=== PATIENT | female | born 1940 | race Caucasian/White ===

== ENCOUNTER → 2016-04-20 | Outpatient (CLI) | payer OTHER ==
[~2016-04-20] MED LIST: ASPI81TA28 PO; ATEN-171 PO; BROM0.07 OPL; CALC600T37 PO; CHOL2000 PO; COEN100C11 PO; CZR25 PO; DIFL0.0519 OPL; GATI0.5S OPL; GLC/500 PO; LEVO50TA6 PO; MULT-506 PO; SIMV20TA2 PO; VITACAP26 PO
[2016-04-20 09:49] LABS: ALT/SGPT 22 U/L (12-78); BLOOD UREA NITROGEN 24 mg/dl (7-18); BUN/CREATININE RATIO 26.6 (10-20); CALCIUM 9.1 mg/dl (8.5-10.1); CARBON DIOXIDE 28 mmol/L (21-32); CHLORIDE 106 mmol/L (98-107); CHOLESTEROL 155 mg/dl (0-200); GLUCOSE 114 mg/dl (70-99); POTASSIUM 3.7 mmol/L (3.5-5.1); SODIUM 142 mmol/L (136-145); TRIGLYCERIDES 161 mg/dl (0-150); VERY LOW DENSITY LIPOPROT CALC 32 mg/dl
[2016-04-20 09:58] LABS: ESTIMATED AVERAGE GLUCOSE 123 mg/dl; HA1C FLAG Normal (Normal)
[2016-04-20 09:59] LABS: ALB/GLOB RATIO 1.2 (0.9-2); ALKALINE PHOSPHATASE 47 U/L (45-117); AST/SGOT 22 U/L (15-37); CHOLESTEROL/HDL RATIO 2.9; HDL CHOLESTEROL 53 mg/dl; LDL CHOLESTEROL CALCULATED 70 mg/dl
== END | disposition home or self-care (01) ==
LOC: C.LAB1850 08:05
PROVIDERS: ATTEND Internal Medicine
DX: E87.6 Hypokalemia (principal); E11.9 Type 2 diabetes mellitus without complications

== ENCOUNTER → 2016-10-27 | Outpatient (CLI) | payer OTHER ==
[~2016-10-27] MED LIST changes: -BROM0.07 OPL; -DIFL0.0519 OPL; -GATI0.5S OPL
[2016-10-27 09:37] LABS: BASO % 0.7 %; BASO ABS # 0.04 K/uL (0-0.2); COMPLETE YES; EOS % 3.1 %; HEMATOCRIT 41.5 % (37-47); IG% 0.2 %; LYMPH % 33.8 %; LYMPH ABS # 2.07 K/uL (1.2-3.4); MEAN CELL VOLUME 89.6 fL (80-100); MEAN CORPUSCULAR HEMOGLOBIN 29.8 pg (25-34); MEAN CORPUSCULAR HGB CONC 33.3 g/dl (32-36); MEAN PLATELET VOLUME 11.5 fL (7.4-10.4); MONO % 7.2 %; PLATELET COUNT 203 K/uL (130-400); RED BLOOD COUNT 4.63 M/uL (4.2-5.4); WHITE BLOOD COUNT 6.13 K/uL (4.8-10.8)
[2016-10-27 10:00] LABS: ESTIMATED AVERAGE GLUCOSE 120 mg/dl; HA1C FLAG Normal (Normal)
[2016-10-27 10:42] LABS: RATIO 31.1 mcg/mg (0-30.0)
[2016-10-27 10:47] LABS: ALT/SGPT 25 U/L (12-78); AST/SGOT 19 U/L (15-37); BLOOD UREA NITROGEN 19 mg/dl (7-18); CALCIUM 9.2 mg/dl (8.5-10.1); CARBON DIOXIDE 27 mmol/L (21-32); CHLORIDE 106 mmol/L (98-107); CHOLESTEROL 148 mg/dl (0-200); CREATININE 0.88 mg/dl (0.60-1.20); GLUCOSE 119 mg/dl (70-99); POTASSIUM 3.4 mmol/L (3.5-5.1); SODIUM 142 mmol/L (136-145)
[2016-10-27 10:57] LABS: ALB/GLOB RATIO 1.1 (0.9-2); ALKALINE PHOSPHATASE 46 U/L (45-117); HDL CHOLESTEROL 49 mg/dl; LDL CHOLESTEROL CALCULATED 63 mg/dl; TRIGLYCERIDES 182 mg/dl (0-150); VERY LOW DENSITY LIPOPROT CALC 36 mg/dl
--- NOTE | 2016-11-03 11:49 | CODING QUERY MEDICAL NECESSITY ---
SUPPORTING DIAGNOSIS NEEDED A supporting diagnosis is required for the test/procedure performed on this patient in order for us to be reimbursed by the patient's insurance. Please provide a supporting diagnosis for the following test/procedure listed below next to the test name along with your signature. *If there is no additional diagnosis for this patient that would support the following test/procedure please document that below next to the test/procedure. Test(s)/Procedure(s) that require a supporting diagnosis: * VITAMIN D, 25-HYDROXY DIAGNOSIS: Provider Signature: Date: Thank you Nella Funk [employer] Once completed, please kindly fax back to [phone] For questions please call [phone]
== END | disposition home or self-care (01) ==
LOC: C.LAB1850 07:30
PROVIDERS: ATTEND Internal Medicine
DX: E11.9 Type 2 diabetes mellitus without complications (principal); E03.9 Hypothyroidism, unspecified; I10 Essential (primary) hypertension; E78.5 Hyperlipidemia, unspecified

== ENCOUNTER → 2016-11-22 | Outpatient (CLI) | payer OTHER | END | disposition home or self-care (01) | LOC: C.MAMM 10:53 | PROVIDERS: ATTEND Internal Medicine | DX: Z13.820 Encounter for screening for osteoporosis (principal); M85.832 Other specified disorders of bone density and structure, left forearm ==

== ENCOUNTER → 2017-01-18 | Day surgery (SDC) | payer OTHER ==
[2016-12-22 14:52] VITALS: Ht 158.8 cm; Wt 74.1 kg
[~2017-01-18] VITALS: Ht 158.8 cm; Wt 74.1 kg
[~2017-01-18] MED LIST changes: +500ML BSS 0.3ML EPI 1:1000PF IRRIG ONE; +ACETAMINOPHEN 325 MG TAB PO PRN; +AMVISC PLUS 0.8ML SYRINGE INT OCU ONE; +ATROPINE SULFATE 0.1 MG/ML 5ML SYR IV PRN; +BSS FLUSH ONE; +EpHEDrine SULFATE INJ 50 MG/ML AMP IV PRN; +EpINEphrine INJ 1MG/ML AMP 1 MG/ML AMP ONE; +LACTATED RINGER'S 1000ML 500 ML IV SCH; +LIDOCAINE 3.5% OPH GEL PER APPLICATION CHARGE ONE; +LIDOCAINE HCL 1% MPF 2 ML VIAL ONE; +MIDAZOLAM HCL 1 MG/ML 2ML VIAL ONE; +OCUCOAT 1 ML SOLN IO ONE; +PHENYLEPHRINE HCL 10% OP SOLN PER DROP CHARGE OPR SCH; +POVIDONE-IODINE OP SOLN 30 ML BTL ONE; +PROPARACAINE 0.5% OP SOLN PER DROP CHARGE OPR SCH; +SODIUM CHLORIDE 0.9% 500ML IV SCH; +TOBRAMYCIN/DEXAMETHASONE OPH OINT PER APPLN CHARGE ONE
[2017-01-18] MEDS: PHENYLEPHRINE HCL 2.5% OP SOLN PER DROP CHARGE OPR SCH ×2 (07:06→07:12)
[2017-01-18] MEDS: TROPICAMIDE 1% OP SOLN PER DROP CHARGE OPR SCH ×2 (07:07→07:13)
[2017-01-18] MEDS: CYCLOPENTOLATE HCL 1% OP SOLN PER DROP CHARGE OPR SCH ×2 (07:09→07:14)
[2017-01-18] MEDS: KETOROLAC 0.5% OP SOLN PER DROP CHARGE OPR SCH ×2 (07:10→07:15)
[2017-01-18] MEDS: GATIFLOXACIN OP SOLN PER DROP CHARGE OPR SCH ×2 (07:11→07:16)
--- NOTE | 2017-01-18 07:25 | History & Physical Bridge - [place] ---
H&P Re-Evaluation Bridge Note: I have examined the patient, reviewed the History & Physical and in the interval since the performance of the History & Physical I have noted the following changes of clinical significance: No changes noted
--- NOTE | 2017-01-18 08:08 | Discharge Instructions-SurgCtr ---
Discharge Instructions Date of Service Jan 18, 2017. Visit Reason for Visit: Cataract Right Eye Discharge Discharge Diagnosis / Problem: cataract Discharge Goals Goal(s): Improve function Activity Recommendations Activity Limitations: per Instructions/Follow-up section Anesthesia . Post Anesthesia Instructions: If you have had General Anesthesia or IV Sedation: * Do not drive today. * Resume driving when surgeon permits. * Do not make important decisions or sign legal documents today. * Call surgeon for: 1. Temperature elevations greater than 101 degrees F. 2. Uncontrollable pain. 3. Excessive bleeding. 4. Persistent nausea and vomiting. 5. Medication intolerance (nausea, vomiting or rash). * For nausea and vomiting use only clear liquids such as: tea, soda, bouillon until nausea subsides, then gradually increase diet as tolerated. * If you have any concerns or questions, call your surgeon's office. If physician is unavailable and it is an emergency, call 911 or go to the nearest emergency room. . Diet Recommendations Home Diet: resume previous diet Procedures Procedures Performed: Right Cataract Phacoemulsification With Intraocular Lens Implant Pending Studies Studies pending at discharge: no Medical Emergencies . Who to Call and When: Medical Emergencies: If at any time you feel your situation is an emergency, please call 911 immediately. . Non-Emergent Contact Non-Emergency issues call your: Manager Corporate Responsibility . . "Provider Documentation" section prepared by Andrey Henderson. .
--- NOTE | 2017-01-18 08:09 | [facility] Operative Report ---
Operative Report Date of Service Jan 18, 2017. Operative Report 1. PREOPERATIVE DIAGNOSIS: Cataract of the right eye. 2. POSTOPERATIVE DIAGNOSIS: Same. 3. PROCEDURE: Phacoemulsification with intraocular lens implantation of the right eye. SURGEON: Dr. Andrey Henderson. ANESTHESIA: Topical Lidocaine gel, 1% Non- Preserved intracameral Lidocaine, and monitored intravenous sedation. INDICATIONS FOR THE PROCEDURE: The patient is a 76 - year-old female with a history of cataract of the right eye causing significant visual impairment. The details of the proposed procedure were explained to the patient who asked appropriate questions and following discussion of all risks, benefits and alternatives agreed to have the procedure done. 4. OPERATION AND FINDINGS: DESCRIPTION OF PROCEDURE: After informed consent was obtained, the patient was brought to the Operating Room at the [facility]. The patient was placed in a supine position and then the right eye was prepped and draped in the usual sterile fashion for intraocular surgery. A drop of topical Lidocaine gel was placed in the operative eye. A wire lid speculum was then placed in the fornices. A corneal paracentesis was then created temporally. The Non-Preserved Lidocaine was then instilled into the anterior chamber. The anterior chamber was then pressurized with viscoelastic. A 2.0 mm clear corneal incision was then created temporally. A cystotome was inserted into the anterior chamber and used to create a tear in the anterior lens capsule. This capsular tear was then used to create a small flap and the flap was dragged in a counterclockwise direction in order to create a continuous curvilinear capsulorrhexis. Hydrodissection was accomplished with balanced salt solution. Phacoemulsification of the lens nucleus was then performed in a standard [id number] technique. The phaco time was 30 seconds with an average power of 16 %. The remaining cortical material was removed using irrigation aspiration. The capsular bag was then filled with viscoelastic. A Bausch [employer] Lomb MI60L +22.5 diopters lens was then loaded into the injector and injected into the capsular bag. The remaining viscoelastic was removed with the irrigation aspiration handpiece. The wound was hydrated and then checked and found to be watertight. The intraocular pressure was checked and found to be adequate. The wire lid speculum was removed and the patient's face was cleaned and dried. TobraDex ointment was placed in the inferior fornix. The patient was discharged to the Recovery Room having tolerated the procedure well. There were no complications. The patient will be seen tomorrow in the office for follow-up. I attest to the content of the Intraoperative Record and any orders documented therein. Any exceptions are noted below.
--- NOTE | 2017-01-18 08:15 | Anesthesia Progress Nt - [facility] ---
Anesthesia Post Op Note Date & Time Jan 18, 2017 at 08:14 Vital Signs Pain Intensity: 0 Vital Signs Past 12 Hours Date Time Temp Pulse Resp B/P (MAP) Pulse Ox O2 Delivery O2 Flow Rate FiO2 01/18/17 06:59 36.1 58 16 140/74 (96) 96 Room Air Notes Mental Status: alert / awake / arousable, participated in evaluation Pt Amnestic to Procedure: Yes Nausea / Vomiting: adequately controlled Pain: adequately controlled Airway Patency, RR, SpO2: stable & adequate BP & HR: stable & adequate Hydration State: stable & adequate Anesthetic Complications: no major complications apparent
[2017-01-18 08:49] VITALS: BP 141/74; PULSE 62; TEMP 36.6; O2SAT 99
== END | disposition home or self-care (01) ==
LOC: X.SURG 06:40
PROVIDERS: ATTEND Ophthalmology
DX: H26.9 Unspecified cataract (principal); E11.36 Type 2 diabetes mellitus with diabetic cataract; I10 Essential (primary) hypertension; E78.5 Hyperlipidemia, unspecified; E83.52 Hypercalcemia; E03.9 Hypothyroidism, unspecified; E04.2 Nontoxic multinodular goiter; E66.9 Obesity, unspecified; M85.80 Other specified disorders of bone density and structure, unspecified site; Z79.82 Long term (current) use of aspirin; Z79.899 Other long term (current) drug therapy

== ENCOUNTER → 2017-02-08 | Day surgery (SDC) | payer OTHER ==
[2017-01-25 14:30] VITALS: Ht 158.8 cm; Wt 74.1 kg
[~2017-02-08] VITALS: Ht 158.8 cm; Wt 74.1 kg
[~2017-02-08] MED LIST changes: +BROM0.07 OPL; +DIFL0.0519 OPL; +GATI0.5S OPL; +PHENYLEPHRINE HCL 10% OP SOLN PER DROP CHARGE OPL SCH; -PHENYLEPHRINE HCL 10% OP SOLN PER DROP CHARGE OPR SCH; +PROPARACAINE 0.5% OP SOLN PER DROP CHARGE OPL SCH; -PROPARACAINE 0.5% OP SOLN PER DROP CHARGE OPR SCH; -SODIUM CHLORIDE 0.9% 500ML IV SCH
[2017-02-08] MEDS: PHENYLEPHRINE HCL 2.5% OP SOLN PER DROP CHARGE OPL SCH ×2 (09:10→09:15)
[2017-02-08] MEDS: TROPICAMIDE 1% OP SOLN PER DROP CHARGE OPL SCH ×2 (09:11→09:16)
[2017-02-08] MEDS: CYCLOPENTOLATE HCL 1% OP SOLN PER DROP CHARGE OPL SCH ×2 (09:12→09:17)
[2017-02-08] MEDS: KETOROLAC 0.5% OP SOLN PER DROP CHARGE OPL SCH ×2 (09:13→09:18)
[2017-02-08] MEDS: GATIFLOXACIN OP SOLN PER DROP CHARGE OPL SCH ×2 (09:14→09:24)
--- NOTE | 2017-02-08 10:39 | Discharge Instructions-SurgCtr ---
Discharge Instructions Date of Service Feb 08, 2017. Visit Reason for Visit: Cataract Left Eye Discharge Discharge Diagnosis / Problem: cataract Discharge Goals Goal(s): Improve function Medications Stopped Medications Name(s): metformin-last dose 02/05/17, asa 81mg-last dose 02/01/17 Activity Recommendations Activity Limitations: per Instructions/Follow-up section Anesthesia . Post Anesthesia Instructions: If you have had General Anesthesia or IV Sedation: * Do not drive today. * Resume driving when surgeon permits. * Do not make important decisions or sign legal documents today. * Call surgeon for: 1. Temperature elevations greater than 101 degrees F. 2. Uncontrollable pain. 3. Excessive bleeding. 4. Persistent nausea and vomiting. 5. Medication intolerance (nausea, vomiting or rash). * For nausea and vomiting use only clear liquids such as: tea, soda, bouillon until nausea subsides, then gradually increase diet as tolerated. * If you have any concerns or questions, call your surgeon's office. If physician is unavailable and it is an emergency, call 911 or go to the nearest emergency room. . Diet Recommendations Home Diet: resume previous diet Procedures Procedures Performed: Left Cataract Phacoemulsification With Intraocular Lens Implant Pending Studies Studies pending at discharge: no Medical Emergencies . Who to Call and When: Medical Emergencies: If at any time you feel your situation is an emergency, please call 911 immediately. . Non-Emergent Contact Non-Emergency issues call your: Paving Inspector . . "Provider Documentation" section prepared by Andrey Henderson. .
--- NOTE | 2017-02-08 10:40 | [facility] Operative Report ---
Operative Report Date of Service Feb 08, 2017. Operative Report 1. PREOPERATIVE DIAGNOSIS: Cataract of the left eye. 2. POSTOPERATIVE DIAGNOSIS: Same. 3. PROCEDURE: Phacoemulsification with intraocular lens implantation of the left eye. SURGEON: Dr. Andrey Henderson. ANESTHESIA: Topical Lidocaine gel, 1% Non- Preserved intracameral Lidocaine, and monitored intravenous sedation. INDICATIONS FOR THE PROCEDURE: The patient is a 77 - year-old female with a history of cataract of the left eye causing significant visual impairment. The details of the proposed procedure were explained to the patient who asked appropriate questions and following discussion of all risks, benefits and alternatives agreed to have the procedure done. 4. OPERATION AND FINDINGS: DESCRIPTION OF PROCEDURE: After informed consent was obtained, the patient was brought to the Operating Room at the [facility]. The patient was placed in a supine position and then the left eye was prepped and draped in the usual sterile fashion for intraocular surgery. A drop of topical Lidocaine gel was placed in the operative eye. A wire lid speculum was then placed in the fornices. A corneal paracentesis was then created temporally. The Non-Preserved Lidocaine was then instilled into the anterior chamber. The anterior chamber was then pressurized with viscoelastic. A 2.0 mm clear corneal incision was then created temporally. A cystotome was inserted into the anterior chamber and used to create a tear in the anterior lens capsule. This capsular tear was then used to create a small flap and the flap was dragged in a counterclockwise direction in order to create a continuous curvilinear capsulorrhexis. Hydrodissection was accomplished with balanced salt solution. Phacoemulsification of the lens nucleus was then performed in a standard [id number] technique. The remaining cortical material was removed using irrigation aspiration. The capsular bag was then filled with viscoelastic. A Bausch & Lomb MI60L +22.0 diopters lens was then loaded into the injector and injected into the capsular bag. The remaining viscoelastic was removed with the irrigation aspiration handpiece. The wound was hydrated and then checked and found to be watertight. The intraocular pressure was checked and found to be adequate. The wire lid speculum was removed and the patient's face was cleaned and dried. TobraDex ointment was placed in the inferior fornix. The patient was discharged to the Recovery Room having tolerated the procedure well. There were no complications. The patient will be seen tomorrow in the office for follow-up. I attest to the content of the Intraoperative Record and any orders documented therein. Any exceptions are noted below.
[2017-02-08 10:45] VITALS: TEMP 36.8
[2017-02-08 11:01] VITALS: BP 133/77; PULSE 59; O2SAT 95
--- NOTE | 2017-02-08 11:10 | Anesthesia Progress Nt - [facility] ---
Anesthesia Post Op Note Date & Time Feb 08, 2017 at 11:09 Vital Signs Pain Intensity: 0 Vital Signs Past 12 Hours Date Time Temp Pulse Resp B/P (MAP) Pulse Ox O2 Delivery O2 Flow Rate FiO2 02/08/17 11:01 59 16 133/77 (95) 95 Room Air 02/08/17 10:45 36.8 60 20 119/74 (89) 98 Room Air 02/08/17 08:59 36.6 63 18 144/82 (102) 96 Room Air Notes Mental Status: alert / awake / arousable, participated in evaluation Pt Amnestic to Procedure: Yes Nausea / Vomiting: adequately controlled Pain: adequately controlled Airway Patency, RR, SpO2: stable & adequate BP & HR: stable & adequate Hydration State: stable & adequate Anesthetic Complications: no major complications apparent
== END | disposition home or self-care (01) ==
LOC: X.SURG 08:34
PROVIDERS: ATTEND Ophthalmology
DX: H25.9 Unspecified age-related cataract (principal); E11.36 Type 2 diabetes mellitus with diabetic cataract; I10 Essential (primary) hypertension; E78.5 Hyperlipidemia, unspecified; E83.52 Hypercalcemia; E03.9 Hypothyroidism, unspecified; M85.80 Other specified disorders of bone density and structure, unspecified site; E66.9 Obesity, unspecified; Z87.891 Personal history of nicotine dependence; Z79.82 Long term (current) use of aspirin; Z79.84 Long term (current) use of oral hypoglycemic drugs; Z79.899 Other long term (current) drug therapy

== ENCOUNTER → 2017-04-13 | Outpatient (CLI) | payer OTHER ==
[~2017-04-13] MED LIST changes: -500ML BSS 0.3ML EPI 1:1000PF IRRIG ONE; -ACETAMINOPHEN 325 MG TAB PO PRN; -AMVISC PLUS 0.8ML SYRINGE INT OCU ONE; -ATROPINE SULFATE 0.1 MG/ML 5ML SYR IV PRN; -BSS FLUSH ONE; -EpHEDrine SULFATE INJ 50 MG/ML AMP IV PRN; -EpINEphrine INJ 1MG/ML AMP 1 MG/ML AMP ONE; -LACTATED RINGER'S 1000ML 500 ML IV SCH; -LIDOCAINE 3.5% OPH GEL PER APPLICATION CHARGE ONE; -LIDOCAINE HCL 1% MPF 2 ML VIAL ONE; -MIDAZOLAM HCL 1 MG/ML 2ML VIAL ONE; -OCUCOAT 1 ML SOLN IO ONE; -PHENYLEPHRINE HCL 10% OP SOLN PER DROP CHARGE OPL SCH; -POVIDONE-IODINE OP SOLN 30 ML BTL ONE; -PROPARACAINE 0.5% OP SOLN PER DROP CHARGE OPL SCH; -TOBRAMYCIN/DEXAMETHASONE OPH OINT PER APPLN CHARGE ONE
--- NOTE | 2017-04-14 13:48 | MAMMOGRAPHY REPORT ---
BILATERAL DIGITAL SCREENING MAMMOGRAM TOMOSYNTHESIS WITH CAD: 04/13/2017 CLINICAL HISTORY: Routine screening. Patient has no complaints. TECHNIQUE: Breast tomosynthesis in addition to standard 2D mammography was performed. Current study was also evaluated with a Computer Aided Detection (CAD) system. COMPARISON: Comparison is made to exams dated: 04/12/2016 mammogram, 04/07/2015 mammogram, 4 mammogram, 02/26/2013 mammogram, 02/23/2012 mammogram, and 02/22/2011 mammogram - [facility]. BREAST COMPOSITION: There are scattered areas of fibroglandular density in both breasts. FINDINGS: There is stable nodularity in the anterior left breast. Scattered benign rim calcification s and mild vascular calcification bilaterally. No suspicious mass, architectural distortion or clust er of microcalcifications is seen. IMPRESSION: ACR BI-RADS CATEGORY 1: NEGATIVE There is no mammographic evidence of malignancy. A 1 year screening mammogram is recommended. The pa tient will receive written notification of the results. Approximately 10% of breast cancers are not detected with mammography. A negative mammographic report should not delay biopsy if a clinically suggestive mass is present. Jocelyne Eddy M.D. ay/:04/13/2017 17:09:39 Plastic Technician: Laura Quintero, [facility] letter sent: Normal 1/2 BI-RADS Code: ACR BI-RADS Category 1: Negative
== END | disposition home or self-care (01) ==
LOC: C.MAMM 09:44
PROVIDERS: ATTEND Internal Medicine
DX: Z12.31 Encounter for screening mammogram for malignant neoplasm of breast (principal)

== ENCOUNTER → 2017-04-26 | Outpatient (CLI) | payer OTHER ==
[2017-04-26 12:19] LABS: BASO % 0.5 %; BASO ABS # 0.03 K/uL (0-0.2); EOS % 2.1 %; EOS ABS # 0.14 K/uL (0-0.5); HEMATOCRIT 41.7 % (37-47); HEMOGLOBIN 14.3 g/dL (12.0-16.0); IG# 0.01 K/uL (0.00-0.02); LYMPH % 33.4 %; LYMPH ABS # 2.18 K/uL (1.2-3.4); MEAN CELL VOLUME 90.8 fL (80-100); MEAN CORPUSCULAR HEMOGLOBIN 31.2 pg (25-34); MEAN CORPUSCULAR HGB CONC 34.3 g/dl (32-36); MEAN PLATELET VOLUME 11.2 fL (7.4-10.4); MONO % 6.7 %; MONO ABS # 0.44 K/uL (0.11-0.59); NEUT % 57.1 %; NEUT ABS # 3.72 K/uL (1.4-6.5); PLATELET COUNT 233 K/uL (130-400); RED CELL DISTRIBUTION WIDTH CV 12.9 % (11.5-14.5); RED CELL DISTRIBUTION WIDTH SD 42.8 fL (36.4-46.3); WHITE BLOOD COUNT 6.52 K/uL (4.8-10.8)
[2017-04-26 16:38] LABS: ALBUMIN 3.6 gm/dl (3.4-5.0); ALT/SGPT 22 U/L (12-78); AST/SGOT 21 U/L (15-37); BLOOD UREA NITROGEN 20 mg/dl (7-18); CALCIUM 8.9 mg/dl (8.5-10.1); CARBON DIOXIDE 29 mmol/L (21-32); CHOLESTEROL 149 mg/dl (0-200); CREATININE 0.93 mg/dl (0.60-1.20); GLUCOSE 113 mg/dl (70-99); POTASSIUM 3.5 mmol/L (3.5-5.1); SODIUM 139 mmol/L (136-145)
[2017-04-26 16:48] LABS: ALKALINE PHOSPHATASE 46 U/L (45-117); LDL CHOLESTEROL CALCULATED 68 mg/dl; TOTAL PROTEIN 6.7 gm/dl (6.4-8.2)
== END | disposition home or self-care (01) ==
LOC: C.LAB1850 11:13
PROVIDERS: ATTEND Internal Medicine
DX: E03.9 Hypothyroidism, unspecified (principal); E78.5 Hyperlipidemia, unspecified; E11.9 Type 2 diabetes mellitus without complications; I10 Essential (primary) hypertension

== ENCOUNTER → 2017-05-02 | Outpatient (CLI) | payer OTHER ==
--- NOTE | 2017-05-02 11:13 | DIAGNOSTIC IMAGING REPORT ---
C-SPINE ROUTINE 4 OR 5 VIEWS HISTORY: Pain M43.6 Neck [id number] COMPARISON: None. FINDINGS: The cervical spine is visualized from C1 through the superior endplate of T1. There is no fracture. No subluxation. Considerable degenerative disc changes throughout. Significant sclerosis of the vertebral endplates with mild anterior osteophytic changes throughout the entire cervical region. No evidence for an acute compression deformity. Degenerative changes C1-C2 complex. Prevertebral soft tissues and the atlantodens interval are intact. IMPRESSION: Considerable degenerative change throughout the entire cervical region. No acute process. The above report was generated using voice recognition software. It may contain grammatical, syntax or spelling errors. Electronically signed by: Jose Cleary M.D. 05/02/2017 11:11 AM Dictated Date/Time: 05/02/2017 11:11 AM
== END | disposition home or self-care (01) ==
LOC: C.RAD1850 10:48
PROVIDERS: ATTEND Internal Medicine
DX: M43.6 Torticollis (principal)

== ENCOUNTER → 2017-12-06 | Outpatient (CLI) | payer OTHER ==
[2017-12-06 12:22] LABS: BLOOD UREA NITROGEN 17 mg/dl (7-18); CALCIUM 10.1 mg/dl (8.5-10.1); CARBON DIOXIDE 29 mmol/L (21-32); CREATININE 0.89 mg/dl (0.60-1.20); GLUCOSE 93 mg/dl (70-99); POTASSIUM 4.1 mmol/L (3.5-5.1); SODIUM 140 mmol/L (136-145)
== END | disposition home or self-care (01) ==
LOC: C.LAB1850 10:45
PROVIDERS: ATTEND Internal Medicine
DX: I10 Essential (primary) hypertension (principal)

== ENCOUNTER 2022-03-25 07:47 | Inpatient (IN) ==
--- NOTE | 2022-03-02 12:01 | PAT Medication Instructions ---
Medication Instructions Date of Service March 02, 2022 Home Medications Medication Instructions Recorded blood sugar diagnostic (FreeStyle #50 ea 10/17/18 Lite Strips) lancets 28 gauge (FreeStyle #25 ea 10/17/18 Lancets) simvastatin 10 mg tablet 10 mg PO QPM #90 tabs 04/27/21 losartan 50 mg tablet 50 mg PO BID #180 tabs 06/24/21 metformin 500 mg tablet,extended 500 mg PO Q12H #180 tabs 06/24/21 release 24 hr biotin 1 mg tablet 1 mg PO QPM coenzyme Q10 100 mg tablet 100 mg PO QPM aspirin 81 mg tablet 81 mg PO QPM calcium carbonate 600 mg calcium (1,500 mg) tablet 600 mg PO QPM cholecalciferol (vitamin D3) 50 mcg (2,000 unit) tablet 2,000 units PO QPM ascorbate calcium (vitamin C) 500 mg capsule 500 mg PO BID simvastatin 10 mg tablet 10 mg PO QPM losartan 50 mg tablet 50 mg PO BID metformin 500 mg tablet,extended release 24 hr 500 mg PO Q12H L.acidophil-L.casei-B.bifid-B.longum-FOS 2 billion cell-50 mg capsule (Probiotic Blend) 1 cap PO QAM acetaminophen 650 mg tablet,extended release 1,300 mg PO Q12H hydrochlorothiazide 25 mg tablet 25 mg PO QAM levothyroxine 50 mcg tablet 50 mcg PO QAM lutein 25 mg-zeaxanthin 5 mg capsule 1 cap PO BID multivitamin,tx-mqld-xbjhlacd 1 tab PO QAM vitamin B complex (B Complex-Vitamin B12 tablet) 1 tab PO QDL ASK your prescriber and surgeon aspirin 81 mg tablet 81 mg PO QPM STOP taking 2 weeks before surgery (or as soon as possible if surgery is within 2 weeks) coenzyme Q10 100 mg tablet 100 mg PO QPM lutein 25 mg-zeaxanthin 5 mg capsule 1 cap PO BID DO NOT take the morning of surgery ascorbate calcium (vitamin C) 500 mg capsule 500 mg PO BID losartan 50 mg tablet 50 mg PO BID metformin 500 mg tablet,extended release 24 hr 500 mg PO Q12H L.acidophil-L.casei-B.bifid-B.longum-FOS 2 billion cell-50 mg capsule (Probiotic Blend) 1 cap PO QAM hydrochlorothiazide 25 mg tablet 25 mg PO QAM multivitamin,xu-tcmd-vqayxwhq 1 tab PO QAM vitamin B complex (B Complex-Vitamin B12 tablet) 1 tab PO QDL Take morning of surgery With a small sip of water, OTHERWISE NOTHING TO EAT OR DRINK AFTER MIDNIGHT: acetaminophen 650 mg tablet,extended release 1,300 mg PO Q12H levothyroxine 50 mcg tablet 50 mcg PO QAM Take evening before surgery biotin 1 mg tablet 1 mg PO QPM calcium carbonate 600 mg calcium (1,500 mg) tablet 600 mg PO QPM cholecalciferol (vitamin D3) 50 mcg (2,000 unit) tablet 2,000 units PO QPM ascorbate calcium (vitamin C) 500 mg capsule 500 mg PO BID simvastatin 10 mg tablet 10 mg PO QPM losartan 50 mg tablet 50 mg PO BID metformin 500 mg tablet,extended release 24 hr 500 mg PO Q12H acetaminophen 650 mg tablet,extended release 1,300 mg PO Q12H Other Notes If you have any questions please call us at [phone] or [phone] or [phone] or [phone]
--- NOTE | 2022-03-03 15:01 | Anesthesiology Consultation ---
Date of Service March 03, 2022 Assessment & Plan (1) Encounter for pre-operative examination: - COVID screening: Per assessment on 03/03: No known COVID-19 positive contacts or current COVID-19 related symptoms. Travel screen negative. Patient vaccinated. At surgeon discretion if preop Covid testing being done. - Check BSG AM DOS - Outpatient joint assessment: Pt currently scheduled for inpatient pathway. If surgeon requests review for outpatient joint pathway, patient is acceptable candidate for [facility] outpatient joint program from anesthesia standpoint pending surgeon's office assessment of pt motivation/strong home support/completion of same day joint program preop requirements. - Possible DI: D/t anatomy Chart Review Chart Review: Acceptable Risk for Surgery and Patient seen in Pre Admission Testing History Surgery Operation Date: 03/25/22 09:55 Proposed Procedures p Right Reverse Total Shoulder Arthroplasty - Edison Herman MD Height/Weight Height: 5 ft 2 in Weight: 80.1 kg Allergies Allergy/AdvReac Type Severity Reaction Status Date / Time No Known Allergies Allergy Unknown Verified 03/02/22 10:47 Medications Home Medications Medication Instructions Recorded Confirmed Last Taken biotin 1 mg tablet 1 mg PO QPM 10/05/18 03/02/22 Unknown coenzyme Q10 100 mg tablet 100 mg PO QPM 10/05/18 03/02/22 Unknown aspirin 81 mg tablet 81 mg PO QPM 10/17/18 03/02/22 Unknown blood sugar diagnostic (FreeStyle #50 ea 10/17/18 02/18/22 Unknown Lite Strips) calcium carbonate 600 mg calcium 600 mg PO QPM 10/17/18 03/02/22 Unknown (1,500 mg) tablet cholecalciferol (vitamin D3) 50 2,000 units PO QPM #30 tabs 10/17/18 03/02/22 Unknown mcg (2,000 unit) tablet lancets 28 gauge (FreeStyle #25 ea 10/17/18 02/18/22 Unknown Lancets) ascorbate calcium (vitamin C) 500 500 mg PO BID 08/20/19 03/02/22 Unknown mg capsule simvastatin 10 mg tablet 10 mg PO QPM #90 tabs 04/27/21 03/02/22 Unknown losartan 50 mg tablet 50 mg PO BID #180 tabs 06/24/21 03/02/22 Unknown metformin 500 mg tablet,extended 500 mg PO Q12H #180 tabs 06/24/21 03/02/22 Unknown release 24 hr L.acidophil-L.casei-B.bifid-B.longum-FOS 1 cap PO QAM 03/02/22 03/02/22 Unknown 2 billion cell-50 mg capsule (Probiotic Blend) acetaminophen 650 mg 1,300 mg PO Q12H 03/02/22 03/02/22 Unknown tablet,extended release hydrochlorothiazide 25 mg tablet 25 mg PO QAM 03/02/22 03/02/22 Unknown levothyroxine 50 mcg tablet 50 mcg PO QAM 03/02/22 03/02/22 Unknown lutein 25 mg-zeaxanthin 5 mg 1 cap PO BID 03/02/22 03/02/22 Unknown capsule multivitamin,me-pags-hflzqoag 1 tab PO QAM 03/02/22 03/02/22 Unknown vitamin B complex (B 1 tab PO QDL 03/02/22 03/02/22 Unknown Complex-Vitamin B12 tablet) Past Medical History Medical History Degenerative disc disease Dyslipidemia Hypertension Hypothyroidism Macular degeneration of left eye Multinodular goiter Osteoarthritis of right shoulder Osteopenia Type 2 diabetes mellitus NIDDM Exercise / Class Metabolic Activity II 4-5 Yardwork/Stairs/Walk up hill (Works at [employer] (no CP or SOB with activity)) Past Family History Family History Aunt Diabetes Maternal Breast cancer Uncle Diabetes Maternal Mother Diabetes Family/Other Heart disease Other No family history of adverse response to anesthesia Denies family history of Ovarian cancer Prostate cancer Myocardial infarction Colorectal cancer Past Surgical History Surgical History History of bilateral cataract extraction History of cardiac cath 1970s > no stents History of esophagogastroduodenoscopy (EGD) History of left breast biopsy x2--benign History of partial thyroidectomy right side removed due to nodule--per pt in the History of tooth extraction all teeth removed Nausea and vomiting after administration of anesthetic agent S/P cholecystectomy Past Anesthesia History No Hx of Anesthesia Complications (except PONV) and No Family Hx of Anesthesia Complications History of PONV No Hx of Motion Sickness and History of PONV Social History Smoking Status: Former smoker Do You Dip or Chew Tobacco: No Smoking End Date: Quit 1987 Hx Alcohol Use: Yes Alcohol type: wine alcohol intake frequency: holidays/special occasions only Hx Substance Use: No substance use type: does not use Review of Systems Patient denies chest pain, shortness of breath, dyspnea on exertion, fever, chills, cough, wheezing, palpitations. Physical Exam Vital Signs VITALS BP 145/67 P 100 TEMP 98.1 SP02 96%RA RESP 16 PHYSICAL Full cervical extension range of motion. Full TMJ range of motion. TMD 3 finger breaths Mallampati Score 4 (small oral opening) Dentition: full upper/lower dentures Lungs: clear throughout to auscultation Cardiac: regular rate and rhythm, no murmurs noted Spine: normal Carotid arteries: negative bruit Extremities: no edema Lab Results Anesthesia Preop Results Results Anesthesia Widget: WBC 7.81 K/ul (4.8-10.8) 03/03/22 Hgb 13.1 g/dl (12.0-16.0) 03/03/22 Hct 38.6 % (34.1-44.9) 03/03/22 Plt 263 K/uL (130-400) 03/03/22 Na 140 mmol/L (136-145) 02/18/22 K 4.2 mmol/L (3.5-5.1) 02/18/22 Cl 104 mmol/L (98-107) 02/18/22 CO2 28 mmol/L (21-32) 02/18/22 BUN 29 mg/dl (6-23) H 02/18/22 Creat 0.82 mg/dl (0.6-1.2) 02/18/22 Glucose Level 132 mg/dl (70-99(Fasting)) H 02/18/22 PT 10.5 Seconds (9.0-12.0) 03/03/22 PTT 23.7 Seconds (21.0-31.0) 03/03/22 INR 1.0 (0.9-1.1) 03/03/22 HA1c 6.4 % (4.5-5.6) H 02/18/22 Blood Type A Positive 03/03/22 Antibody Screen NEGATIVE 03/03/22 Testing Electrocardiogram Date: 03/03/22 SR with PSVCs at 98bpm. Low voltage QRS. Chest X-Ray Date: 03/03/22 FINDINGS: PA and lateral chest radiographs are compared to study dated 12/11/2013. The cardiomediastinal silhouette is unremarkable noting atherosclerotic calcification of the thoracic aorta. Chronic interstitial thickening is similar to previous. The lungs and pleural spaces are clear. There is no pneumothorax. The skeletal structures are osteopenic. The bony thorax appears intact. Arthritic change is noted in the shoulders. Cholecystectomy clips are seen in the right upper quadrant. IMPRESSION: No active disease in the chest. COVID-19 Risk Screen Screening Information COVID-19 Screen Date: 03/03/22 Exposure 21 Days Family/Household +COVID Last 21 Days: No Exposure 10 Days Any COVID Exposure Last 10 Days: No Symptoms Last 10 Days Experienced COVID Sx Last 10 Days: No + COVID 0-90 Days COVID + in Last 0-90 Days: No
[~2022-03-25 07:47] MED LIST changes: -ASPI81TA28 PO; -ATEN-171 PO; -BROM0.07 OPL; +BUPIVACAINE 0.5 % 5 MG/1 ML PF 10ML VIAL ONE; -CALC600T37 PO; -CHOL2000 PO; -COEN100C11 PO; -CZR25 PO; -DIFL0.0519 OPL; -GATI0.5S OPL; -GLC/500 PO; -LEVO50TA6 PO; +LR 15ML/HR IV SCH; +LR 60ML/HR IV SCH; -MULT-506 PO; -SIMV20TA2 PO; -VITACAP26 PO; +ceFAZolin 2000MG 2,000 MG/15 ML SYR IV SCH
[2022-03-25] MEDS ORDERED: LIDOCAINE 2% 20 MG/ML 5 ML SYR IV ONE (07:58)
[2022-03-25] MEDS ORDERED: MIDAZOLAM HCL 1 MG/ML 2ML VIAL ONE (07:58)
[2022-03-25] MEDS ORDERED: fentaNYL citrate 100 MCG/2 ML VIAL ONE (07:58)
[2022-03-25] MEDS ORDERED: ROCURONIUM BROMIDE 10 MG/ML 5 ML VIAL IV ONE (07:58)
[2022-03-25] MEDS ORDERED: PROPOFOL IV EMULSION 10 MG/ML 20 ML VIAL IV ONE (07:58)
[2022-03-25] MEDS ORDERED: ONDANSETRON INJ 2 MG/ML 2 ML VIAL IV PRN ×2 (09:33→15:17)
[2022-03-25] MEDS ORDERED: ePHEDrine sulfate 50 MG/ML AMP IV PRN (09:33)
[2022-03-25] MEDS ORDERED: ATROPINE SULFATE 0.1 MG/ML 10ML SYR IV PRN (09:33)
[2022-03-25] MEDS ORDERED: fentaNYL citrate 100 MCG/2 ML VIAL IV PRN (09:33)
[2022-03-25] MEDS ORDERED: HYDROmorphone INJ 1 MG/ML SYRINGE IV PRN (09:33)
[2022-03-25] MEDS ORDERED: ONDANSETRON INJ 2 MG/ML 2 ML VIAL ONE ×2 (10:15→12:57)
--- NOTE | 2022-03-25 10:17 | History & Physical Bridge Note ---
Date of Service March 25, 2022 History & Physical Bridge Note I have examined the patient, reviewed the History & Physical and in the interval since the performance of the History & Physical I have noted the following changes of clinical significance: no changes noted
[2022-03-25] MEDS ORDERED: SCOPOLAMINE 1 MG TDSY TD ONE ×2 (10:27→11:28)
[2022-03-25] MEDS ORDERED: TRANEXAMIC ACID / 0.7% NACL 1000MG/100ML BAG IV ONE (11:25)
[2022-03-25] MEDS ORDERED: ePHEDrine sulfate 50 MG/ML AMP ONE (11:39)
[2022-03-25] MEDS ORDERED: GLYCOPYRROLATE 0.2 MG/ML VIAL ONE ×2 (12:57→15:52)
[2022-03-25] MEDS ORDERED: NEOSTIGMINE METHYLSULFATE 1 MG/ML 10ML VIAL ONE ×2 (12:57→15:52)
[2022-03-25] MEDS ORDERED: TRANEXAMIC ACID 100 MG/ML 10 ML VIAL IV ONE (13:27)
--- NOTE | 2022-03-25 13:50 | Operative Report ---
PG Post Operative Report Pre & Post Diagnosis Operation Date: 03/25/22 10:15 Pre-Op Diagnosis: Osteoarthritis and rotator cuff arthropathy of right shoulder, biceps tendinitis Post-Op Diagnosis: Osteoarthritis and rotator cuff arthropathy of right shoulder, severe biceps tendinitis I identified the patient and participated in the time-out.: Yes Procedure Operation Date: 03/25/22 10:15 Actual Procedures p Right Reverse Total Shoulder Arthroplasty(Right) - Edison Herman MD Right open biceps tenodesis Surgeon Edison Herman MD Check Writer Adelfo Aguilera PA-C Estimated Blood Loss 150 Findings See Below [employer]ienne [employer] comprehensive reverse shoulder arthroplasty was performed: Stem9 mm mini, baseplatelarge augmented superior, glenosphere[36 mm standard], humeral tray [36 mm standard +0 offset], poly [36 mm standard], central screw 6.5 mm x 30 mm, all locking peripheral screws 4.75 x [15]mm, 4.75 x 20 mm, 4.75 x 20 mm, and 4.75 x 25 mm EXAMINATION UNDER ANESTHESIA: Preoperative exam under anesthesia revealed the following: [120] degrees of forward flexion, [70] degrees external rotation at the side, 120 degrees of abduction, 70 degrees of external rotation and 30 degrees of internal rotation with the arm abducted. Postoperatively, range of motion parameters after implantation of prosthesis revealed a stable prosthesis with range of motion parameters as follows: [130] of forward flexion, [60] of external rotation at the side, 110 of abduction, [90] of external rotation with the arm abducted, [20] of internal rotation with the arm abducted. The patient's safe range of motion included the ability to get to the back of her head. Internal rotation to the belly without significant tension. Specimens None Drains none Anesthesia Type General Regional Complications none Disposition Accompanied Patient To Recovery: No Disposition: Recovery Room Indications 82-year-old female with longstanding right shoulder pain that recently been progressive over the past year. Physical exam and advanced imaging were consistent with central wear osteoarthritis and likely rotator cuff dysfunction. She had attempted management with activity modification, anti-inflammatories, and steroid injections, however pain persisted. I did offer elective shoulder arthroplasty, likely reverse, to address her pain and hopefully improve motion. After long discussion of the risk and benefits over 2 separate appointments, she was into proceeding with surgery. Informed consent was obtained in clinic Description of Procedure The patient was identified in the preoperative holding area. The operative extremity was marked. Regional block was administered by Anesthesia. The patient was then brought to the operating room and placed supine. Preliminary time-out procedure was performed. All were in agreement. General endotracheal anesthesia was induced without any issues. The patient was sat up in around 40-45 degrees of inclination in the beachchair position. Exam under anesthesia was performed confirming the above findings. Preoperative antibiotics were administered. Sequential compressive devices were placed on her bilateral lower extremities for DVT prophylaxis. Bony prominences were inspected, well-padded and free of any evidence for peripheral nerve compression. The operative upper extremity was then prepped and draped in a normal standard fashion, with use of the Arthrex Trimano arm positioner. Prior to incision, a second time-out procedure was performed confirming the patient, site, laterality and the procedure. All were in agreement. 1. Right shoulder open reverse total shoulder replacement with augmented glenoid baseplate with patient specific guide: A deltopectoral incision was utilized. Incision was carried out sharply and with electrocautery through the skin and subcutaneous tissues. The deltopectoral interval was developed. The cephalic vein was taken laterally. Subdeltoid space was developed bluntly. A deltoid brown retractor was placed to retract the deltoid laterally and superiorly. 1 cm of the superior border of the pectoralis major tendon insertion site was released in standard fashion to improve exposure. Clavipectoral fascia was removed with electrocautery. Extensive subacromial bursitis was encountered and this was completely removed with a Bovie. The lateral aspect of the conjoined tendon was then followed to its insertion site on the coracoid. The conjoined tendon was retracted medially. The biceps tendon was identified, enlarged consistent with tendinopathy. It was released from the sheath using a Bovie and followed up into the rotator interval. A tenodesis was performed to the pectoralis major tendon as will be discussed in further detail below. A sharp Hohmann retractor was then placed into the interval and into the joint. Subscapularis tendon was still present and attached on the lesser tuberosity. The articular surface of the humeral head could be appreciated. The subscapularis tendon was then tagged with two #5 Ti-Cron sutures to gain control. The capsule with the subscapularis tendon was then released up the inferior humeral neck as one layer. The humeral head dislocated with successive extension and external rotation. Visualization of the humeral head revealed significant osteoarthritis and wear. The supraspinatus was significantly deficient. The anterior portion of the greater tuberosity was bare. The subscap was adherent but had some degenerati on. The posterior rotator cuff was intact including the teres minor. The top of the humeral head was identified. A starting awl was used sound the humeral canal. The bone quality was moderate. We opted to set the retroversion of the humeral cut at around 20 degrees of retroversion her agua caliente retroversion. The humeral head resection was then made in parallel fashion to the guide. Sequential reaming was carried out up to a size 9 as the maximal stem size. Successive trial broaches were then broached up to a size 9, which gave us excellent press-fit. The trial stem was left in place. We then proceeded over to glenoid. An anterior glenoid neck retractor was placed. The MGHL and SGHL were released off of the muscular portion of the subscapularis being mindful of palpating and identifying the axillary nerve to make sure it was free of injury during releases. Next, the interval between the IGHL and the muscular portions of the subscapularis was identified. My finger was on the axillary nerve to protect it during releases. The IGHL was then released up to around the 7 o'clock position. A blunt retractor was then placed to retract the humerus posteriorly. A sharp Hohmann retractor was placed at the 12 o'clock position. The glenoid deformity was evaluated with assistance with the bone model. Extraneous capsulolabral tissue was dissected to reveal the bone anatomy. This confirmed our decision to proceed with preoperative virtual planning. The arm was placed around 30 degrees of flexion, 90 degrees of external rotation and 30 degrees of abduction to distract the humerus posteriorly. Labrum was circumferentially removed including the biceps tendon stump with a Bovie. A patient specific guide was used to place an initial guide pin, followed by the more superior pin. The patient specific guide was then removed. The custom reamer guide was placed on the superior pin and the reamer was brought down the central pin. Reaming was conducted based on the guide. Irrigation was used and we confirmed adequate reaming. The base protector was then fastened with a screw to protect the surface from the augment reamer. The augment reamer sufficiently removed the cartilage surface. Copious irrigation was performed to irrigate out the joint. A large augment baseplate, with wedge placed superior and a 25 mm threaded screw was then placed. The baseplate seem to rotate, so we moved forward with placing the peripheral screws after resetting the rotation and tapping the baseplate once again. Three peripheral locking screws were placed. Anterior hole was filled as well with a short 50 mm locking screw. The final construct appeared to be extremely strong as the entire glenoid and scapula moved together as one unit confirming excellent fixation of the baseplate. Given the previous rotation, I opted to remove the central 25 mm screw and replace it with a 30 mm screw to obtain extra purchase. A 36 standard trial glenosphere was placed. Humerus was then brought back into view with external rotation, deltoid brown retractor and multiple blunt Homans. A trial tray was then placed that would best accommodate her anatomy. The humerus was then reduced onto the glenoid with the arm in abduction and external rotation. The arm was taken out of the cerna, taken through a physiologic range of motion. No evidence for impingement. No evidence for kick off. No shuck. Thus, the trials would be a most appropriate for stability. Thorough irrigation was conducted. We also used 500 cc irrigation of iodine solution. This was cleared out with normal saline. Next, a 36 mm inferior offset set at position D glenosphere was chosen given our preop plan. The glenosphere was then seated into the baseplate and impacted onto the duncan taper. A yun was used to test fixation, before resetting with additional malletting. The joint was then copiously irrigated. Next, the trial humeral component was removed. The canal was thoroughly irrigat ed and aspirated. Iodine solution was then soaked into the surgical site for about 1 minute. There was then cleared out with normal saline. The final stem prosthesis was then brought onto the field. Final tray insert as well as the poly components were opened. Using the trial component, the final humeral component with the tray and poly were made on the back table, matching the trial implant. Humeral canal was copiously irrigated. Two 2.0 mm drill holes were then placed in the bicipital groove just lateral to the lesser tuberosity. Two #5 Ti-Con sutures were placed through these holes and clamped aside for later subscapularis repair. The final humeral component was then brought back on to the field and seated firmly into the humerus. Excellent press-fit was achieved. Thus, this completed the humeral component implantation. With the final components in place, humeral component was then reduced onto the glenosphere and final postoperative range of motion assessment was performed. Stability confirmed. Repeat irrigation was conducted. Again iodine solution lavage was carried out. Final normal saline wash was carried out. The subscapularis was then repaired to the humerus using a Norman-Ravinder configuration. This completed the open reverse total shoulder replacement. The superficial tissues and a thoroughly irrigated and dried for closure 2. Open biceps tenodesis: As dictated above, enlargement of the biceps tendon was noted consistent with tendinopathy. A tenodesis was opted. The tendon was released from the bicipital sheath using a Bovie and then tenodesed to the pectoralis major tendon using a #2 Ti-Cron suture in [id number] fashion. The tendon was then followed up as proximal as could be visualized and then tenotomized. Remaining stump was removed just proximal to the tenodesis site. This completed the open biceps tenodesis. The wound was copiously irrigated. The deltopectoral incision was closed with interrupted # 0 Vicryl. Subcutaneous tissues were closed with 2-0 Vicryl suture in buried interrupted fashion and skin closed with jewell. Dressing consisting of sterile Xeroform, plain gauze, ABD and Ioban dressing. The patient was placed in a standard sling and turned over to the anesthesia team. The patient tolerated procedure well, was extubated in the operating without complication, and transferred to the PACU in stable condition. DISPOSITION: The patient will remain in sling for a total of 6 weeks. Hand, wrist, and elbow range of motion exercises may be initiated. After 3 weeks, the sling will be worn only in the daytime out of the house. Formal therapy will be initiated starting with gentle passive range of motion and active range of motion. No strengthening will be permitted before 12 weeks. When strengthening is allowed, only gentle strengthening will be allowed. Physician resident care assistant attestation: Adelfo Aguilera PA-C was present and scrubbed for the duration of the case. He was essential to prepping/draping, patient positioning, retraction, and assistance with wound closure. I attest to the content of the Intraoperative Record and any orders documented therein. Any exceptions are noted below.
[2022-03-25] MEDS ORDERED: DROPERIDOL 5 MG/2 ML VIAL IV STA (14:04)
--- NOTE | 2022-03-25 14:39 | XRay Report ---
XR shoulder RT min 2V routine CLINICAL HISTORY: Post shoulder surgery COMPARISON: Right shoulder radiographs September 28, 2021. Right shoulder CT January 06, 2022. FINDINGS: Alignment of the reverse total right shoulder arthroplasty is anatomic. There is no peripr osthetic fracture or unexpected radiopaque foreign body. There are skin jewell. Small radiodensities projecting over the right upper arm are unchanged from preoperative radiographs. IMPRESSION: Expected findings following total right shoulder arthroplasty. ACT 112: Negative or not required by law. Electronically signed by: Nilo Ramires M.D. 03/25/2022 2:38 PM
--- NOTE | 2022-03-25 14:44 | Anesthesiology Progress Note ---
Date of Service March 25, 2022 Anesthesia Post Procedure Vital Signs Vital Signs: Temp Pulse Resp BP BP Pulse Ox O2 Del Method 03/25/22 14:35 36.3 C L 82 21 123/60 95 Room Air 03/25/22 14:25 83 26 H 131/62 93 Room Air 03/25/22 14:15 83 27 H 119/68 95 Room Air 03/25/22 14:05 89 26 H 120/88 92 Room Air 03/25/22 13:55 36.0 C L 88 20 138/88 95 Oxymask 03/25/22 08:28 191/81 H 03/25/22 08:12 36.6 C 87 20 188/113 H 97 Room Air O2 Flow Rate 03/25/22 14:35 03/25/22 14:25 03/25/22 14:15 03/25/22 14:05 03/25/22 13:55 5 03/25/22 08:28 03/25/22 08:12 Pain Intensity Right Shoulder: Pain Intensity: 5 Right Axilla: Pain Intensity: 3 Transfer of Care Handoff Completed per policy Notes Mental Status: alert / awake / arousable and participated in evaluation Patient Amnestic to Procedure: Yes Nausea / Vomiting: adequately controlled Pain: adequately controlled Airway Patency, RR, SpO2: stable & adequate BP & HR: stable & adequate Hydration State: stable & adequate Anesthetic Complications: no major complications apparent and Pt Satisfied with anesthetic care
[2022-03-25] MEDS ORDERED: MAGNESIUM HYDROXIDE SUSP 30 ML UDC PO PRN (15:17)
[2022-03-25] MEDS ORDERED: bisacodyL 10 MG SUPP PR PRN (15:17)
[2022-03-25] MEDS ORDERED: oxyCODONE HCL IR 5 MG TAB (IMMEDIATE RELEASE) PO PRN (15:17)
[2022-03-25] MEDS ORDERED: METOCLOPRAMIDE HCL INJ 5 MG/ML 2 ML VIAL IV PRN (15:17)
[2022-03-25] MEDS ORDERED: NALOXONE HCL 0.4 MG/1 ML VIAL/CARP IV PRN (15:17)
[2022-03-25] MEDS ORDERED: metFORMIN HCL ER 500 MG TABCR PO SCH (15:17)
[2022-03-25] MEDS: SODIUM CHLORIDE 0.9% 1000ML 1,000 ML IV SCH (15:52)
[2022-03-25] MEDS ORDERED: CHECK SCOPOLAMINE PATCH PLACEMENT SCH (16:00)
[2022-03-25] MEDS ORDERED: PHARMACY GLYCEMIC MGMT CONSULT PRN (16:20)
[2022-03-25] MEDS ORDERED: GLUCOSE 40% GEL 15 GM TUBE PO PRN (16:30)
[2022-03-25] MEDS ORDERED: GLUCAGON FOR INJ 1 MG VIAL IM PRN (16:30)
[2022-03-25] MEDS ORDERED: GLUCOSE 10 TAB/TUBE PO PRN (16:30)
[2022-03-25] MEDS ORDERED: DEXTROSE 50% 50 ML SYRINGE IV PRN (16:30)
[2022-03-25] MEDS ORDERED: CARBOHYDRATES FOR HYPOGLYCEMIA PO PRN (16:30)
[2022-03-25] MEDS: ACETAMINOPHEN 500 MG TAB PO SCH ×2 (17:38→21:10)
[2022-03-25] MEDS: INSULIN ASPART PER UNIT SC SCH ×2 (17:40→21:09)
[2022-03-25] MEDS ORDERED: LANTUS PER UNIT CHARGE SQ ONE (17:45)
[2022-03-25] MEDS: ceFAZolin 2000MG 2,000 MG/15 ML SYR IV SCH (19:20)
[2022-03-25] MEDS ORDERED: CALCIUM 600MG + VIT D 400 IU TAB PO SCH (21:00)
[2022-03-25] MEDS ORDERED: SENNA 8.6 MG TAB PO SCH (21:00)
[2022-03-25] MEDS ORDERED: SIMVASTATIN 10 MG TAB PO SCH (21:00)
[2022-03-25] MEDS ORDERED: CHOLECALCIFEROL 1,000 UNITS 25 MCG TAB PO SCH (21:00)
[2022-03-25] MEDS: DOCUSATE SODIUM 100 MG CAP PO SCH (21:11)
[2022-03-25] MEDS: LOSARTAN POTASSIUM 50 MG TAB PO SCH (21:12)
[2022-03-25] MEDS: ASCORBIC ACID 500 MG TAB PO SCH (21:13)
[2022-03-26] MEDS: SODIUM CHLORIDE 0.9% 1000ML 1,000 ML IV SCH (00:25)
[2022-03-26] MEDS: INSULIN ASPART PER UNIT SC SCH ×4 (00:43→12:28)
[2022-03-26] MEDS: ceFAZolin 2000MG 2,000 MG/15 ML SYR IV SCH (04:20)
[2022-03-26] MEDS: ACETAMINOPHEN 500 MG TAB PO SCH ×2 (05:11→12:28)
[2022-03-26] MEDS ORDERED: LEVOTHYROXINE SODIUM 50 MCG TABLET PO SCH (06:30)
[2022-03-26 06:45] LABS: Basophils # (auto) 0.01 K/uL (0-0.2); Basophils % (auto) 0.1 %; Hematocrit (blood only) 32.5 % (34.1-44.9); Hemoglobin 10.8 g/dl (12.0-16.0); Immature Granulocytes # (auto) 0.03 K/uL (0.00-0.02); Immature Granulocytes % (auto) 0.3 %; Lymphocytes % (auto) 10.5 %; Mean Corpuscular Hemoglobin 30.9 pg (25.0-34.0); Mean Corpuscular Hgb Conc 33.2 g/dL (32.0-36.0); Mean Corpuscular Volume 93.1 fL (80.0-100.0); Mean Platelet Volume 11.2 fL (9.4-12.3); Monocytes % (auto) 12.6 %; Neutrophils # (auto) 7.25 K/uL (1.4-6.5); Neutrophils % (auto) 76.5 %; Platelet Count 242 K/uL (130-400); RDW Coefficient of Variation 12.9 % (11.5-14.5); RDW Standard Deviation 43.9 fL (36.4-46.3); Red Blood Count 3.49 M/uL (3.93-5.22); White Blood Count 9.49 K/ul (4.8-10.8)
[2022-03-26 07:10] LABS: BUN Creatinine Ratio 23.8 (10-20); Creatinine Clr Calc Pharmacy 49.7 ml/min; Est GFR (African American) 74.5 ml/min; Est GFR (Non-African American) 64.3 ml/min; Potassium 4.4 mmol/L (3.5-5.1)
[2022-03-26] MEDS: ASCORBIC ACID 500 MG TAB PO SCH (08:21)
[2022-03-26] MEDS: DOCUSATE SODIUM 100 MG CAP PO SCH (08:21)
[2022-03-26] MEDS: LOSARTAN POTASSIUM 50 MG TAB PO SCH (08:22)
[2022-03-26] MEDS ORDERED: MULTIVITAMIN TX IRON MINERALS PO SCH (09:00)
[2022-03-26] MEDS ORDERED: MULTIVITAMIN TAB PO SCH (09:00)
[2022-03-26] MEDS ORDERED: hydroCHLOROthiazide 25 MG TAB PO SCH (09:00)
[2022-03-26] MEDS ORDERED: ASPIRIN 81 MG ECTAB PO SCH (09:00)
[2022-03-26] MEDS ORDERED: VITAMIN B COMPLEX TAB PO SCH (11:30)
--- NOTE | 2022-03-26 12:56 | Pharmacy Report ---
Pharmacy Glycemic Short Note 2 - Date of Service March 26, 2022 - Glycemic Short BSG Results (Last 24 hours): 03/25/22 03/25/22 03/25/22 14:18 17:17 20:32 Glucose POC Glucose 188 H 187 H 186 H 03/26/22 03/26/22 03/26/22 00:30 04:16 06:11 Glucose 146 H POC Glucose 158 H 140 H 03/26/22 03/26/22 08:12 12:25 Glucose POC Glucose 140 H 139 H OUTPATIENT ANTIDIABETIC REGIMEN: * Metformin 500 ER mg BID ASSESSMENT: * An Du is a 82 years old woman with is Past medical history of T2DM (A1C 6.4 as at 03/09). POD 1 of shoulder anthroplasty * Received Lantus 20 units sq one dose on POD 0 and started on Novolog ACHS (Goal 110-140, CF 25, CR 7). * FBSG today is 140 mg/dl. Will re-start outpatient metformin due to consistent BSG with T2DM diet and continue Novolog (Goal 110-140 and CF 25) and without CR PLAN FOR INPATIENT GLYCEMIC CONTROL: * Restarted Metformin ER 500 mg PO BID * Bolus insulin * NovoLog per scale ACHS or Q6hrs while NPO * Goal Range: Low 110 mg/dL - High 140 mg/dL * Correction Factor: 25 mg/dL/unit
--- NOTE | 2022-03-26 13:16 | Orthopedic Progress Note ---
Date of Service March 26, 2022 Assessment & Plan (1) History of reverse total replacement of right shoulder joint: Subjective Pain tolerable. Tolerating PO. No issues. Wants to go home today Review of Systems All systems reviewed & are unremarkable except as noted in HPI & below. Physical Exam RIGHT SHOULDER: dressing c/d/i. DNVI including axillary nerve sensory distribution Constitutional WD/WN, vitals as above no acute distress and not intoxicated appearing Respiratory normal respiratory effort; no labored breathing Cardiovascular Extremities: normal capillary refill Results & Data Results & Data Laboratory Results . Diagnostic Findings Postop xray - no complications PG Care Time/CCT Total # of Minutes Spent Total Time Spent with Patient: Total time spent is greater than 50% in coordination of care (as documented) at patient's floor/unit and/or counseling patient: Coding Level of Care Code 48318 Post Operative Follow-Up Diagnoses History of reverse total replacement of right shoulder joint Z98.890
[2022-03-26] MEDS ORDERED: metFORMIN HCL ER 500 MG TABCR PO SCH (17:00)
--- NOTE | 2022-03-29 08:26 | Discharge Summary ---
Date of Service March 29, 2022 Admission HPI (Per Admitting) CC:Right shoulder pain. HISTORY OF PRESENT ILLNESS:This is an 82-year-old female who remains active and healthy who presents to clinic with the intention of proceeding with a previously offered right shoulder arthroplasty procedure. She reports pain persists. She did not get much relief at all from previous glenohumeral and subacromial injections. She does not recall any other injuries. 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 It does interfere with sleep. It is refractory to activity modification, anti- inflammatory treatment, and now refractory to injections. She has seen her primary care doctor recently and deemed healthy enough to proceed with surgery. She intends to proceed. REVIEW OF SYSTEMS: No report of fevers, chills, nausea, vomiting, or respiratory complaints. Has been well recently, other than what is noted in Subjective. PHYSICAL EXAM: Gen: NAD, appears well, vitals reviewed. HEENT: Atraumatic, no abnormalities. CV: Normal and symmetric peripheral pulses, no significant diffuse extremity edema. Chest: No wheeze, non-labored breathing pattern with symmetric chest excursion. Skin: No significant diffuse rash. Principal Diagnosis Same as "Discharge Diagnosis" noted below under Discharge Instructions. Discharge Exam RIGHT SHOULDER: dressing c/d/i. DNVI including axillary nerve sensory distribution Discharge Data Procedures Performed Operation Date: 03/25/22 10:15 Actual Procedures p Right Reverse Total Shoulder Arthroplasty(Right) - Edison Herman MD Ordered Studies 03/25/22 05:00 US - OR guided needle placemen Routine Hospital Course (1) History of reverse total replacement of right shoulder joint: Admitted on 03/25 post operatively after elective R reverse TSA. No intra- operative or post operative complications. Discharged home on 03/26 after clearance from PT/OT. PG Care Time/CCT Total # of Minutes Spent Total Time Spent with Patient: Total time spent is greater than 50% in coordination of care (as documented) at patient's floor/unit and/or counseling patient: Discharge Plan Discharge Items Patient Disposition: Home - Self-Care Reason For Visit: Osteoarthritis of Right Shoulder Discharge Diagnosis: Same as above Activity: Per Instructions section Non-emergency contact: Surgeon Call non-emergency contact if: you have any medication questions, your pain is not controlled and your temperature is above 101 Follow-up/Referrals: Vazquez Fry MD [Primary Care Provider] - Edison Herman MD [Surgeon] - 04/08/22 3:40 pm Diet: Regular Addtl Attending Provider Instructions: Edison Herman M.D. [facility] [address], [place] [address] Dressing Care: Leave the dressing in place for 3 days. After 3 days you may remove the dressing. If the incision is not draining, you do not have to cover the dressing. If there is a little bit of drainage or if the wound is bothersome with your clothing, cover the incision with a dry dressing. Do not use any ointments or topical medications unless directed by your surgeon. Do not submerse the incisions in water no pools, oceans, lakes, jacuzzis, bathtubs, etc for at least 3 weeks. Showering: You may shower with the dressing in place. Do not let the shower spray hit the dressing directly. Pat the dressing dry. If the dressing becomes wet underneath, then simply remove the dressing. Keep the incision dry until you are 3 days out from the day of surgery. After 3 days you may remove the dressing and shower normally. Allow soap and water to run over the incision and pat dry. Do not scrub or soak the incision. Activity and Therapy Recommendations: - If you are not using home therapy then Outpatient Physical Therapy should start about 3-5 days from your day of surgery. Therapy will last about 8-12 weeks - Wear your sling for 3 weeks, unless otherwise instructed. You may remove your sling to shower and to dress, but otherwise, you should be in your sling at all times, including while sleeping - The shoulder replacement is very stable and you can use your hand while in the sling - You were shown a series of exercises in the hospital. Do these exercises daily including the exercises you were shown in physical therapy. - NO EXTERNAL ROTATION - do not reach out to your side. Pain Control: Use frequent ice to reduce amount of pain medications. Use for 30 minutes per hour. Do not leave in place longer than 30 minutes, especially when your block is in effect, to prevent frostbite or thermal injury. Medications: - Narcotic You will likely be sent home from the hospital with a prescription for the narcotic pain medication that worked best throughout your stay. - Other medications may be prescribed for specific circumstances. If you have any questions, please call the office at . - Resume previous home medications unless otherwise instructed Follow-Up: 1. Ortho Clinic with Dr. Herman: You should be seen in 10-14 days. Please call immediately to schedule if you do not have an appointment. Pending Studies at Discharge: No Stand-Alone Forms: My [facility] Medications and DC Order Prescriptions: New ondansetron HCl 4 mg tablet 4 mg PO Q6H PRN (Reason: nausea and vomiting) Qty: 12 0RF oxycodone 5 mg tablet 5 - 10 mg PO Q4H PRN (Reason: pain, initial therapy) Qty: 18 0RF Rx Instructions: 1-2 tabs every 4 hours as needed for pain; maximum 6 tabs daily Continued calcium carbonate 600 mg calcium (1,500 mg) tablet 600 mg PO QPM (DME) lancets [FreeStyle Lancets] 28 gauge misc See Dose Instructions .ROUTE .MEDSUPPLY Qty: 25 0RF Dose Instruction: As directed Rx Instructions: As directed (DME) FreeStyle Lite Strips strip See Dose Instructions .ROUTE .MEDSUPPLY Qty: 50 0RF Dose Instruction: As directed Rx Instructions: As directed cholecalciferol (vitamin D3) 2,000 unit tablet 2,000 units PO QPM Qty: 30 aspirin 81 mg tablet 81 mg PO QPM simvastatin 10 mg tablet 10 mg PO QPM Qty: 90 3RF losartan 50 mg tablet 50 mg PO BID Qty: 180 3RF metformin 500 mg tablet extended release 24 hr 500 mg PO Q12H Qty: 180 3RF coenzyme Q10 100 mg tablet 100 mg PO QPM biotin 1 mg tablet 1 mg PO QPM ascorbate calcium (vitamin C) 500 mg capsule 500 mg PO BID acetaminophen 650 mg Tablet Extended Release 1,300 mg PO Q12H levothyroxine 50 mcg tablet 50 mcg PO QAM vitamin B complex [B Complex-Vitamin B12] tablet 1 tab PO QDL hydrochlorothiazide 25 mg tablet 25 mg PO QAM multivitamin,pj-kfls-[id number] tablet 1 tab PO QAM lutein-zeaxanthin 25-5 mg capsule 1 cap PO BID Probiotic Blend 2 billion cell-50 mg Capsule 1 cap PO QAM Rx Instructions: give with meal/snack Discharge Orders: Discharge Order (Routine); Ordered 03/26/22 Ordered By: Edison Herman Admission Data Admit Date/Time: 03/25/22 13:52 Attending Provider: Edison Herman Admit Provider: Edison Herman Primary Care Provider: Vazquez Fry V. Other Interventions: Discharge Summary Assessment (RN) Last Done: 03/26/22 13:23
== END 2022-03-26 13:56 | disposition home or self-care (01) | DRG 483 ==
LOC: ASU 07:47 → 3E 13:52 → OBSVTOIN 13:52 → INTOOBSV 13:52